=== PATIENT | female | born 1955 | race Native Hawaiian/Other Pacific Islander ===

== ENCOUNTER 2017-10-18 16:40 | Outpatient (CLI) | payer BC ==
[2017-10-18] MEDS ORDERED: LISITAB PO (17:00)
[2017-10-18] MEDS ORDERED: MOBIC15 MG PO (17:00)
[2017-10-18] MEDS ORDERED: VENLAFAXINE150 M1 PO (17:01)
== END 2017-10-18 16:51 | disposition short-term general hospital (02) ==
LOC: AMB 16:40
DX: R51 Headache (principal); R11.2 Nausea with vomiting, unspecified; R42 Dizziness and giddiness; S00.03XA Contusion of scalp, initial encounter; W18.39XA Other fall on same level, initial encounter; Y92.098 Other place in other non-institutional residence as the place of occurrence of the external cause
CPT/HCPCS: A0425; A0427

== ENCOUNTER 2017-10-18 16:58 | Emergency (ER) | payer BC ==
[~2017-10-18] VITALS: Ht 162.6 cm; Wt 66.7 kg
[2017-10-18] MEDS ORDERED: LISITAB PO (17:00)
[2017-10-18] MEDS ORDERED: MOBIC15 MG PO (17:00)
[2017-10-18] MEDS ORDERED: VENLAFAXINE150 M1 PO (17:01)
[2017-10-18 17:55] LABS: PLATELET COUNT 348 K/uL (152-353)
[2017-10-18 18:42] LABS: POTASSIUM 3.8 mmol/L (3.6-5.2); SODIUM 137 mmol/L (136-145)
== END 2017-10-19 01:45 | disposition home or self-care (01) ==
LOC: ED 16:58
PROVIDERS: Specialist
DX: R31.9 Hematuria, unspecified (principal); M23.92 Unspecified internal derangement of left knee; M23.91 Unspecified internal derangement of right knee; K80.80 Other cholelithiasis without obstruction; R19.00 Intra-abdominal and pelvic swelling, mass and lump, unspecified site; R51 Headache; W01.10XA Fall on same level from slipping, tripping and stumbling with subsequent striking against unspecified object, initial encounter
CPT/HCPCS: 36415; 80053; 80307; 81000; 82150; 83690; 83735; 84100; 85027; 96365; 96374; 96375; 96376; 99284; J1170; J2405; J2550; J3411; J3475; J3490; L1830; Q9963